=== PATIENT | female | born 1990 | race Caucasian/White ===

== ENCOUNTER 2017-01-05 08:15 | Emergency (ER) | payer OTHER ==
[~2017-01-05] VITALS: Wt 65.9 kg
[~2017-01-05 08:15] MED LIST: PREN1TAB79 PO
[2017-01-05] MEDS ORDERED: IBUP-1542 PO (08:45)
[2017-01-05] MEDS ORDERED: AMOX500C2 PO (08:45)
--- NOTE | 2017-01-05 09:00 | ERD ---
ER Documentation Chief Complaint Chief Complaint r. earache HPI Patient is a 26-year-old female presenting to the emergency department with worsening, intermittent, right ear pain for the past 2 days. She has taken no medication for relief of symptoms. She does state she had a type of surgery done on her right tympanic membrane in [place] many years ago, however she does not know what the procedure was. She denies fevers, chills, or other symptoms. ROS All systems reviewed and are negative except as per history of present illness. Medications Home Meds Active Scripts Ibuprofen* (Motrin*) 600 Mg Tab, 600 MG PO Q6, #20 TAB Prov:SOHEILA LESTER PA-C 01/05/17 Amoxicillin* (Amoxicillin*) 500 Mg Cap, 500 MG PO TID for 10 Days, #30 CAP Prov:SOHEILA LESTER PA-C 01/05/17 Reported Medications Vit W-Ca,Fe,FA(<1 mg) ( Vitamins) 1 Each Tablet, 1 EACH PO, TAB 02/17/16 Allergies Allergies: Coded Allergies: No Known Allergy (Unverified , 02/17/16) PMhx/Soc History of Surgery: Yes (rt ear surgery , nose surgery, ) Anesthesia Reaction: No Hx Neurological Disorder: No Hx Respiratory Disorders: No Hx Cardiac Disorders: No Hx Psychiatric Problems: No Hx Miscellaneous Medical Probl: No Hx Alcohol Use: No Hx Substance Use: No Hx Tobacco Use: No Smoking Status: Never smoker Physical Exam Vitals Vital Signs Date Time Temp Pulse Resp B/P Pulse Ox O2 Delivery O2 Flow Rate FiO2 01/05/17 08:22 98.0 80 20 146/76 97 Physical Exam Const: Nontoxic, well-appearing female in no acute distress. Head: Atraumatic Eyes: Normal Conjunctiva ENT: Normal External Ears, Nose and Mouth. There is erythema noted to the right tympanic membrane but no significant bulging. There is mild edema of the external auditory canal of the right ear. The left tympanic membrane and auditory canal are normal in appearance. Ext: No cyanosis, or edema Neur: Awake and alert Psych: Normal Mood and Affect Procedures/MDM 26-year-old female presenting to the emergency department with otitis media versus otitis externa. I will cover the patient with a prescription for amoxicillin. She was in agreement with the plan. She is advised to have close primary care and ENT follow-up if indicated. Patient stable for discharge with strict return precautions. Departure Diagnosis: Primary Impression: Otitis media Otitis media type: other nonsuppurative Chronicity: acute Laterality: right Recurrence: not specified as recurrent Qualified Code: H65.191 - Other acute nonsuppurative otitis media of right ear, recurrence not specified Condition: Fair Patient Instructions: Otitis Media, Abx Tx (Adult) Referrals: [facility], [facility] YOU HAVE RECEIVED A MEDICAL SCREENING EXAM AND THE RESULTS INDICATE THAT YOU DO NOT HAVE A CONDITION THAT REQUIRES URGENT TREATMENT IN THE EMERGENCY DEPARTMENT. FURTHER EVALUATION AND TREATMENT OF YOUR CONDITION CAN WAIT UNTIL YOU ARE SEEN IN YOUR DOCTORS OFFICE WITHIN THE NEXT 1-2 DAYS. IT IS YOUR RESPONSIBILITY TO MAKE AN APPOINTMENT FOR FOLOW-UP CARE. IF YOU HAVE A PRIMARY DOCTOR --you should call your primary doctor and schedule an appointment IF YOU DO NOT HAVE A PRIMARY DOCTOR YOU CAN CALL OUR PHYSICIAN REFERRAL HOTLINE AT IF YOU CAN NOT AFFORD TO SEE A PHYSICIAN YOU CAN CHOSE FROM THE FOLLOWING [facility] [address] [facility] [address] [facility] [facility] [address] [facility] [facility] [address] [facility]. [facility] [address] [facility] [facility]. [address] Additional Instructions: Call your primary care doctor TOMORROW for an appointment during the next 1-2 days.See the doctor sooner or return here if your condition worsens before your appointment time. SOHEILA LESTER PA-C Jan 05, 2017 09:00
== END 2017-01-05 09:36 | disposition home or self-care (01) ==
LOC: FTE 08:15
DX: H65.191 Other acute nonsuppurative otitis media, right ear (principal)
CPT/HCPCS: 99283